=== PATIENT | male | born 1945 | race Caucasian/White ===

== ENCOUNTER → 2023-03-31 12:33 | Outpatient (CLI) | payer OTHER, SELFPAY ==
--- NOTE | 2023-04-08 14:39 | PM.PFT.1 ---
Pulmonary Function Test Referral & Results Date Patient Seen: 03/31/23 Results: The spirometry demonstrates an FVC of 4.57 L which is 112% of predicted. The FEV1 was measured at 3.53 L which is 122% of predicted. The FEV1/FVC ratio was 77 which is 107% of predicted. Following the administration of bronchodilator there was no appreciable change to above normal numbers. Lung volumes show an SVC of 4.64 L which is 105% of predicted. The diffusing capacity was measured at 22.27 which is 68% of predicted. No hemoglobin value was provided, so no correction for potential anemia could be made, if appropriate. Interpretation: This study demonstrates normal spirometry but moderate reduction diffusing capacity suggesting the presence of disease at the capillary alveolar level Clinical correlation suggested
== END ==
PROVIDERS: Referring Provider Chiropractor; Visit Provider Chiropractor
DX: J45.991 Cough variant asthma (principal); J98.8 Other specified respiratory disorders
CPT/HCPCS: 94060; 94726; 94729